=== PATIENT | male | born 1945 | race Caucasian/White ===

== ENCOUNTER → 2016-08-31 | Outpatient (CLI) | payer MEDICARE ==
[~2016-08-31] MED LIST: REGADENOSON 0.4 MG/5 ML IV ONE
== END | disposition home or self-care (01) ==
LOC: NM 07:31
DX: I25.10 Atherosclerotic heart disease of native coronary artery without angina pectoris (principal); I42.0 Dilated cardiomyopathy; I51.7 Cardiomegaly
CPT/HCPCS: 78452; 93017; A9500; J2785

== ENCOUNTER 2017-01-26 22:45 | Emergency (ER) | payer MEDICARE, OTHER ==
[~2017-01-26] VITALS: Ht 182.9 cm; Wt 102.0 kg
[2017-01-26 23:11] VITALS: BP 104/69
[2017-01-26] MEDS ORDERED: SODIUM CHLORIDE 0.9% 1,000 ML IV ONE (23:15)
[2017-01-26] MEDS ORDERED: ASPIRIN 81MG TABLET PO ONE (23:15)
== END 2017-01-27 00:21 | disposition left against medical advice (07) ==
LOC: ER 22:45
DX: R55 Syncope and collapse (principal); R00.2 Palpitations; I10 Essential (primary) hypertension; I25.2 Old myocardial infarction
CPT/HCPCS: 93005; 96360; 99284; J7030